=== PATIENT | female | born 1985 | race Caucasian/White ===

== ENCOUNTER 2020-08-25 15:59 | Observation (INO) | payer MEDICAID ==
[2020-08-25] MEDS ORDERED: FERR325E14 PO (16:25)
[2020-08-25] MEDS ORDERED: PRETAB PO (16:25)
[2020-08-25] MEDS ORDERED: SLOMAG PO (16:25)
== END 2020-08-25 18:30 | disposition home or self-care, planned readmission (81) ==
LOC: MLD 15:59
PROVIDERS: ADMIT Obstetrics & Gynecology; ATTEND Obstetrics & Gynecology
DX: O26.893 Other specified pregnancy related conditions, third trimester (principal); R10.9 Unspecified abdominal pain; Z3A.28 28 weeks gestation of pregnancy
CPT/HCPCS: 36415; 59025; 81000; 86886; 86900; 86901; G0378; J2790